=== PATIENT | male | born 1960 | race Caucasian/White ===

== ENCOUNTER 2020-06-22 08:54 | Day surgery (SDC) | payer OTHER, SELFPAY ==
[2020-06-17 13:42] VITALS: BMI 28.7
--- NOTE | 2020-06-20 08:56 | HO.ANESPROP2 ---
Documented by User: Leidy Xiomara 06/20/20 08:58 HPI - Anesthesia Eval Consult details Narrative: 59yo M for Colonoscopy: screening [facility] Past Medical History Medical History History of TMJ disorder HTN (hypertension) Hx of backache Hx of thrombocytopenia WILMA on CPAP Renal mass, right Surgical History Surgical History Hx of colonoscopy Social History Social History Smoking Status: Former smoker Advance Directives: No Advance Directives Information Provided: No Advance Directives on File: No Meds Allergies Allergy/AdvReac Type Severity Reaction Status Date / Time No Known Allergies Allergy Unverified 05/19/20 15:40 Home Medications Medication Instructions Recorded Confirmed Type cyclobenzaprine 1 tab PO TID 06/17/20 06/17/20 History hydralazine 1 tab PO BID 06/17/20 06/17/20 History lisinopril 20 tab PO 06/17/20 History lorazepam 1 mg PO TID PRN 06/17/20 06/17/20 History meloxicam 1 tab PO DAILY 06/17/20 06/17/20 History metoprolol tartrate 1 tab PO BID 06/17/20 06/17/20 History omega 5-gkn-zcq-fish oil [Fish Oil] 1 cap PO DAILY 06/17/20 06/17/20 History Exam Exam Date and Time: June 20, 2020 0856 Height,Weight and Vital Signs: Height 5 ft 11 in Weight 93.44 kg Pertinent Lab Results Pertinent Lab Results: Laboratory Tests 04/12/20 04/12/20 11:20 11:20 WBC 5.5 Hgb 14.3 Hct 42.8 Plt Count 114 L Sodium 140 Potassium 4.5 Chloride 105 BUN 15 Creatinine 0.86 Assessment and Plan Assessment Anesthesia Assessment: Chart Reviewed Documented by User: Sky Au MD 06/22/20 09:40 [facility] Past Medical History Medical History History of TMJ disorder HTN (hypertension) Hx of backache Hx of thrombocytopenia WILMA on CPAP Renal mass, right Surgical History Surgical History Hx of colonoscopy Social History Social History Smoking Status: Former smoker Advance Directives: No Advance Directives Information Provided: No Advance Directives on File: No Meds Allergies Allergy/AdvReac Type Severity Reaction Status Date / Time No Known Allergies Allergy Unverified 05/19/20 15:40 Home Medications Medication Instructions Recorded Confirmed Type cyclobenzaprine 1 tab PO TID 06/17/20 06/17/20 History hydralazine 1 tab PO BID 06/17/20 06/17/20 History lisinopril 20 tab PO 06/17/20 History lorazepam 1 mg PO TID PRN 06/17/20 06/17/20 History meloxicam 1 tab PO DAILY 06/17/20 06/17/20 History metoprolol tartrate 1 tab PO BID 06/17/20 06/17/20 History omega 9-wzc-owa-fish oil [Fish Oil] 1 cap PO DAILY 06/17/20 06/17/20 History Exam Airway Mallampati Class: II TM Dist: >3cm Neck ROM: Full Loose/Missing/Broken Teeth: No Heart: rrr Lungs: nl Other: ao Assessment and Plan Assessment Anesthesia Assessment: Anesthesia Plan Discussed and Chart Reviewed Final Anesthetic Review NPO: Yes ASA Class: II Final Preanesthetic Review: No Changes in Pt Med Stat, Meds/Allgs Chart Reviewed, Consent Obtained/Reviewed and Anes Risks/Benef Reviewed Patient Risk: Intermediate Procedure Risk: Intermediate Anesthetic Plan Anesthetic Plan: MAC: Disposition: Standard PACU
[2020-06-22 09:11] VITALS: BP 171/99; PULSE 58; RESP 16; TEMP 37.1; O2SAT 99
[2020-06-22] MEDS: Lactated Ringers 1,000 ML 100 ML IVCONT (09:26)
--- NOTE | 2020-06-22 09:32 | MHC.SHP ---
Pre-Procedural Eval Section B Chief Complaint: SCREENING Relevant Social History: None Medical History: Significant History (HTN, renal mass-stable) History of Previous Operations: Relevant previous surgery/procedure and date(s) (back surgery) Allergies: Allergies Allergy/AdvReac Type Severity Reaction Status Date / Time No Known Allergies Allergy Unverified 05/19/20 15:40 Review of Systems Sugical H&P ROS: Negative: Constitution, Cardiovascular, Respiratory, Neurological, Psychiatric, Hem-Onc, Allergic/Immunologic, Gastrointestinal, Genitourinary, Musculoskeletal, Integumentary, Endocrine and Eyes/Ears/Nose/Throat Exam Surgical H&P Exam: Normal: HEENT, Normal: Heart, Normal: Lungs, Normal: Extremities, Normal: Abdomen, Normal: Skin and Normal: Neurological Plan Diagnosis/Plan: Unchanged Patient has been examined and remains a candidate for the planned procedure
--- NOTE | 2020-06-22 10:07 | P.OP_ITS ---
Operative Note Operative Note Narrative: Operative Information Procedure Description: Colonoscopy COLONOSCOPY Instrument: Olympus variable stiffness pediatric scope 190L Colonoscopy Monitoring: Vital signs and clinical assessment, continuous EKG monitoring, Pulse oximetry, Carbon Dioxide monitoring and blood pressure monitoring were done throughout the procedure. Colon withdrawal time was 10 minutes. Procedure: The patient was placed in the left lateral decubitis position and pre-procedure medications were administered. After a digital rectal examination of the ano-rectum, the video colonoscope was inserted into the rectum and advanced through the colon to the cecum/TI. The colonoscope was slowly withdrawn in a retrograde panoramic fashion and the colon mucosa was carefully examined including a retroflexed view of the rectum. Findings and interventions are described below. Procedure Difficulty: easy Findings: Terminal Ileum-normal Cecum: 6-8 mm sessile polyp removed with forceps Ascending Colon: normal Transverse Colon -normal Descending Colon:normal Sigmoid Colon: mild diverticulosis with small tics noted Rectum: Retroflexion with small internal hemorrhoids, grade I Anorectum - normal Colon preparation: [place] Bowel Preparation Scale Right colon; 2 Transverse colon: 2 Left colon; 2 (0 = Unprepared colon segment with mucosa not seen due to solid stool that cannot be cleared. 1 = Portion of mucosa of the colon segment seen, but other areas of the colon segment not well seen due to staining, residual stool and/or opaque liquid. 2 = Minor amount of residual staining, small fragments of stool and/or opaque liquid, but mucosa of colon segment seen well. 3 = Entire mucosa of colon segment seen well with no residual staining, small fragments of stool or opaque liquid) Impression and Post Procedure Diagnosis: diverticulosis internal hemorrhoids polyp Plan: High fiber diet leaflet Avoid straining at stool, epsom salts and sitz bath prn, anusol supps or cream prn Repeat Colonoscopy in 5 years due to staining of colon mucosa or earlier if clincially indicated Above findings were reviewed with the patient and relevant handouts were provided if indicated.
--- NOTE | 2020-06-22 10:07 | PM.OP ---
Brief Operative Note Date of procedure: 06/22/20 Pre-op diagnosis: screening Post-op diagnosis: same Procedure: colonoscopy--see note Surgeon: Ravinder Wynn MD Anesthesia: MAC Estimated blood loss (mL): 0 Condition: stable Disposition: PACU
[2020-06-22 10:14] VITALS: BP 125/79; PULSE 54; RESP 16; TEMP 36.1; O2SAT 95
[2020-06-22 10:27] VITALS: BP 155/91; PULSE 56; RESP 18; O2SAT 97
== END 2020-06-22 10:52 | disposition home or self-care (01) ==
PROVIDERS: PCP Internal Medicine Medical Oncology; Visit Provider Internal Medicine Gastroenterology
PROC: 0DJD8ZZ Inspection of Lower Intestinal Tract, Via Natural or Artificial Opening Endoscopic (ICD-10-PCS; CPT 45378; principal; 2020-06-22 10:10)
DX: Z12.11 Encounter for screening for malignant neoplasm of colon (principal); D12.0 Benign neoplasm of cecum; K57.30 Diverticulosis of large intestine without perforation or abscess without bleeding; K64.0 First degree hemorrhoids; I10 Essential (primary) hypertension; N28.89 Other specified disorders of kidney and ureter; J30.2 Other seasonal allergic rhinitis; Z79.82 Long term (current) use of aspirin; Z79.899 Other long term (current) drug therapy
CPT/HCPCS: 45380; 88305; J3010

== ENCOUNTER 2020-07-20 08:49 | Outpatient (REF) | payer OTHER, SELFPAY ==
--- NOTE | 2020-07-20 | US_ITS ---
EXAMINATION: US RETROPERITONEAL LIMITED (RENAL ONLY) CLINICAL INFORMATION: Right renal mass. COMPARISON: Renal ultrasound dated 04/14/2019 and 12/15/2018. CT abdomen dated 04/12/2020, CT scan of the abdomen dated 12/31/2017 and MRI of the abdomen dated 04/23/2017. TECHNIQUE: Real-time imaging of the kidneys. FINDINGS: RIGHT KIDNEY: 11.6 x 4.53 x 5.95 cm (SAG x AP x TRV). An exophytic heterogeneous echogenic lesion is again seen off of the lower pole the right kidney measuring 1.4 x 1.2 x 1.3 cm. LEFT KIDNEY: 11.9 x 6.37 x 6.72 cm (SAG x AP x TRV). Mild pelvicaliectasis is seen. US/US renal BI IMPRESSION: 1. Exophytic echogenic lesion off of the lower pole the right kidney shows a similar size and appearance to previous studies. This remains nonspecific, but the overall interval stability dating back to 2018 favors a benign/low-grade lesion. This could represent a hemorrhagic cyst or lipid poor angiomyolipoma. Continued short-term monitoring with renal ultrasound in 6-12 months is recommended. 2. Mild left renal pelvicaliectasis is similar to previous studies. No obstructing abnormality is seen.
== END 2020-07-20 08:50 | disposition home or self-care (01) ==
LOC: HO.HMGCX 08:49
PROVIDERS: PCP Internal Medicine Medical Oncology; Visit Provider Internal Medicine Medical Oncology
DX: N28.89 Other specified disorders of kidney and ureter (principal)
CPT/HCPCS: 76775

== ENCOUNTER 2020-08-03 14:23 | Outpatient (REF) | payer OTHER, SELFPAY ==
--- NOTE | 2020-08-03 14:23 | MR_ITS ---
EXAMINATION: MR CERVICAL SPINE WITHOUT CONTRAST CLINICAL INFORMATION: Cervical radiculopathy pain. COMPARISON: Cervical spine radiographs from 07/18/2011. TECHNIQUE: MRI of the cervical spine was obtained using routine sequences without contrast. FINDINGS: Normal anatomic alignment. Moderate multilevel degenerative spondyloarthropathy of the cervical spine from C4-C7. Associated mixed Modic discogenic endplate changes including mild Modic type I discogenic edema at C4-C5 and C5-C6. No additional suspicious marrow edema. The vertebral body heights are largely maintained. No spinal cord signal abnormalities demonstrated in 2 planes. Limited evaluation of the soft tissues of the neck without demonstrated abnormalities. The flow voids of the major cervical vessels are maintained. Normal appearance of the cervicomedullary junction and visualized posterior fossa. SPINAL LEVELS: C2-C3: Mild disc-osteophyte complex. There is mild right and no left uncovertebral joint arthropathy. There is moderate bilateral facet joint arthropathy. There is mild right and no left neural foraminal stenosis. There is no spinal canal stenosis. C3-C4: Moderate disc-osteophyte complex. There is severe left and moderate uncovertebral joint arthropathy. There is moderate bilateral facet joint arthropathy. There is severe left and moderate right neural foraminal stenosis. There is no spinal canal stenosis. C4-C5: Mild to moderate disc-osteophyte complex. There is severe right and moderate left uncovertebral joint arthropathy. There is mild right and moderate left facet joint arthropathy. There is severe right worse than left neural foraminal stenosis. There is flattening the ventral cord with no overt spinal canal stenosis. C5-C6: Moderate disc-osteophyte complex. There is severe right and moderate left uncovertebral joint arthropathy. There is moderate bilateral facet joint arthropathy. There is severe right and moderate left neural foraminal stenosis. There is mild flattening the ventral cord with no overt spinal canal stenosis. C6-C7: Moderate disc-osteophyte complex. There is severe left and moderate uncovertebral joint arthropathy. There is mild to facet joint arthropathy. There is severe left and mild right neural foraminal stenosis. There is flattening the ventral cord with no overt spinal canal stenosis. C7-T1: Minimal disc-osteophyte complex. There is no uncovertebral joint arthropathy. There is severe right and mild left facet joint arthropathy. There is moderate right and no left neural foraminal stenosis. There is no spinal canal stenosis. MR/MR cervical spine wo con IMPRESSION: Moderate multilevel degenerative spondyloarthropathy of the cervical spine as described in detail above. Mild narrowing of the spinal canal from C3-C7 without overt spinal canal stenosis. Multilevel moderate to severe neural foraminal stenoses from C3-T1.
== END 2020-08-03 14:24 | disposition home or self-care (01) ==
LOC: HO.MRI 14:23
PROVIDERS: Visit Provider Psychiatry & Neurology Neurology
DX: M54.12 Radiculopathy, cervical region (principal)
CPT/HCPCS: 72141

== ENCOUNTER → 2020-08-10 09:02 | Outpatient (BNVA) | payer OTHER, SELFPAY | PROVIDERS: PCP Internal Medicine Medical Oncology; Visit Provider Urology | DX: Z76.89 Persons encountering health services in other specified circumstances (principal) ==

== ENCOUNTER 2020-09-14 13:09 | Emergency (ER) | payer OTHER, SELFPAY ==
[2020-09-14 13:13] VITALS: BP 185/114; RESP 16; TEMP 36.8; BMI 26.6
[2020-09-14] MEDS: Lidocaine HCl 1 % MPF 5 ML VIAL SUBCUT (13:32)
--- NOTE | 2020-09-14 13:51 | XR_ITS ---
EXAMINATION: XR HAND, LEFT CLINICAL INFORMATION: Laceration COMPARISON: November 16, 2015 TECHNIQUE: PA, lateral, and oblique views of the left hand. FINDINGS: There is no evidence of acute fracture or dislocation of the left hand. There are some small radiopaque density seen about the radial volar aspect of the soft tissues adjacent to the second middle phalanx. Small amount of gas is seen in the adjacent soft tissues as well as soft tissue swelling. There appear to be 2 soft tissue defects along the radial aspect of the second finger. There is degenerative joint disease seen with marginal spurring of the distal interphalangeal joints as well as the fourth proximal interphalangeal joint. No erosive changes are evident. There is degenerative change involving the triscaphe joint as well as the first carpal metacarpal joint with joint space narrowing, sclerosis, and spurring. This is similar to prior study. There are subchondral cyst formation about the distal ulna. XR/XR hand LT min 3V IMPRESSION: A few radiopaque foreign body seen about the soft tissues adjacent to the second middle phalanx. Degenerative change as described. No acute fracture or dislocation evident.
--- NOTE | 2020-09-14 14:22 | ED_ITS ---
HPI - Wound/Laceration General Chief Complaint: Wound/Laceration <CHARLENE Walker - Last Filed: 09/14/20 14:57> Stated Complaint: finger lac <CHARLENE Walker Last Filed: 09/14/20 14:57> Time Seen by Provider: 09/14/20 13:27 <CHARLENE Walker Last Filed: 09/14/20 14:57> Source: patient <CHARLENE Walker Last Filed: 09/14/20 14:57> Mode of arrival: ambulatory <CHARLENE Walker - Last Filed: 09/14/20 14:57> Limitations: no limitations <CHARLENE Walker Last Filed: 09/14/20 14:57> History of Present Illness HPI narrative: 59yoM of HTN presenting to the ED after sustaining a laceration to his left hand index finger palmar aspect while 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 Reports he is not up-to-date on tetanus. Denies any fevers, purulent drainage, concerns for foreign bodies, paresthesias, any additional injuries or any other symptoms complaints or concerns at this time. <CHARLENE Walker Last Filed: 09/14/20 14:57> Related Data Home Medications: Home Medications Medication Instructions Recorded Confirmed cyclobenzaprine 1 tab PO TID 06/17/20 06/17/20 hydralazine 1 tab PO BID 06/17/20 06/17/20 lisinopril 20 tab PO 06/17/20 lorazepam 1 mg PO TID PRN 06/17/20 06/17/20 meloxicam 1 tab PO DAILY 06/17/20 06/17/20 metoprolol tartrate 1 tab PO BID 06/17/20 06/17/20 omega 5-miq-jof-fish oil [Fish Oil] 1 cap PO DAILY 06/17/20 06/22/20 Previous Rx's Medication Instructions Recorded cephalexin [Keflex] 500 mg PO Q6H 10 Days #40 cap 09/14/20 doxycycline monohydrate 100 mg PO BID 10 Days #20 cap 09/14/20 ibuprofen 800 mg PO Q8H PRN #14 tab 09/14/20 <CHARLENE Walker Last Filed: 09/14/20 14:57> Allergies/Adverse Reactions: Allergies Allergy/AdvReac Type Severity Reaction Status Date / Time No Known Allergies Allergy Unverified 05/19/20 15:40 <CHARLENE Walker - Last Filed: 09/14/20 14:57> Review of Systems Review of Systems: Constitutional : No Fever, No Chills, Cardiovascular : No Chest Pain, No SOB Respiratory : No Dyspnea Gastrointestinal : No abdominal pain Musculoskeletal : No Joint Swelling Skin : + skin laceration, No Foreign bodies, No rash, No surrounding erythema Neuro : No Weakness, No Numbness/tingling Psych : No SI/HI/thoughts of self injury <CHARLENE Walker - Last Filed: 09/14/20 14:57> Yes all other systems are reviewed and are negative <CHARLENE Walker - Last Filed: 09/14/20 14:57> [facility] Past Medical History Attestation statement: The following information was validated with the patient. <CHARLENE Walker - Last Filed: 09/14/20 14:57> Medical History: Medical History History of TMJ disorder HTN (hypertension) Hx of backache Hx of thrombocytopenia WILMA on CPAP Renal mass, right <CHARLENE Walker - Last Filed: 09/14/20 14:57> Surgical History: Surgical History Hx of colonoscopy <CHARLENE Walker - Last Filed: 09/14/20 14:57> Social History Social History: Social History Smoking Status: Former smoker Advance Directives: No Advance Directives Information Provided: No <CHARLENE Walker - Last Filed: 09/14/20 14:57> Physical Exam Vital Signs: Vital Signs: Last Vital Signs Temp 98.5 F 09/14/20 14:55 Pulse 115 H 09/14/20 14:55 Resp 17 09/14/20 14:55 BP 173/103 H 09/14/20 14:55 Pulse Ox 96 09/14/20 14:55 Body Mass Index 26.6 vital signs have been reviewed as normal and appeared to be correct. Blood pressure normal. Heart rate normal. Respiration rate normal. Temperature normal. Oxygen saturation normal. <CHARLENE Walker - Last Filed: 09/14/20 14:57> Vital Signs: Last Vital Signs Temp 98.5 F 09/14/20 14:55 Pulse 115 H 09/14/20 14:55 Resp 17 09/14/20 14:55 BP 173/103 H 09/14/20 14:55 Pulse Ox 96 09/14/20 14:55 Body Mass Index 26.6 <Rory Parkinson MD - Last Filed: 09/22/20 23:34> Appearance: Alert. Oriented X3. No acute distress. Head: Normal external exam. Normocephalic. Atraumatic. Eyes: PERRLA. EOMI. Conjunctiva and sclera normal. Eyelids normal. ENT: Pharynx normal. Uvula midline. Moist mucous membranes. Neck: Normal inspection. Neck supple. FROM. No adenopathy. No meningeal signs. CVS: Normal heart rate and rhythm. Heart sound normal. No murmurs noted. Pulses normal throughout. Respiratory: No respiratory distress. Painless inspiration. Breath sounds normal. No wheezes/rales/rhonchi noted. Chest nontender. No accessory muscle usage noted or decreased air movement noted. Back: Full range of motion noted. Skin: To left hand palmar aspect index finger at the distal aspect patient has 2 cm intermediate laceration. No surrounding erythema/streaking/foreign bodies noted. Otherwise the rest of the Skin is warm and dry. Normal skin color. Normal skin turgor. No rashes/lesions noted. Extremities: Extremities exhibit normal range of motion. Extremities nontender. Neuro: Oriented X 3. No motor deficit. No sensory deficit. Reflexes normal. 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 - patient now status post laceration repair with [address] no complications. Patient tolerated procedure well. Clean dressing placed. Tetanus updated. X-ray ordered if negative for any acute fractures will DC home with symptomatic treatment and antibiotics and instructions return in 10 days for suture removal and to follow up with primary care provider and to return sooner if any new or worsening symptoms. Patient understands agrees with this plan. <CHARLENE Walker - Last Filed: 09/14/20 14:57> I have discussed the case and management with the JUSTIN. I understand there are metallic FB in the finger, JUSTIN has let the patient know <Rory Parkinson MD - Last Filed: 09/22/20 23:34> Reevaluation(s) Reevaluation #1: - x-ray obtained and negative for fractures although revealed foreign bodies. Therefore I reviewed this with the patient and he reported to me most likely this was the Brass that he was cutting and he reports that he is not too worried about this at this time although I explained to him that this is a foreign body and could cause infection in the future or complications although he understands the risks and he will return if any new or worsening symptoms. Will DC home with antibiotics and symptomatic treatment along with instructions return in 10 days for suture removal. Patient understands agrees the plan. <CHARLENE Walker - Last Filed: 09/14/20 14:57> Time: 14:55 <CHARLENE Walker - Last Filed: 09/14/20 14:57> MDM - Wound/Laceration Medical Records Attestation: I reviewed the patient's medical records. <CHARLENE Walker - Last Filed: 09/14/20 14:57> Lab Data Attestation: I reviewed the patient's lab results. <CHARLENE Walker - Last Filed: 09/14/20 14:57> Imaging Data left hand : Attestation: I personally reviewed and interpreted this imaging study as follows: <CHARLENE Walker - Last Filed: 09/14/20 14:57> Radiologist's impression: IMPRESSION: A few radiopaque foreign body seen about the soft tissues adjacent to the second middle phalanx. Degenerative change as described. No acute fracture or dislocation evident. <CHARLENE Walker Last Filed: 09/14/20 14:57> Discharge Plan Discharge Clinical Impression: Laceration, Foreign body in hand <CHARLENE Walker Last Filed: 09/14/20 14:57> Patient Disposition: Home, Self-Care <CHARLENE Walker Last Filed: 09/14/20 14:57> Instructions: Laceration (ED), Soft Tissue Foreign Body (ED) <CHARLENE Walker - Last Filed: 09/14/20 14:57> Prescriptions: New ibuprofen 800 mg tablet 800 mg PO Q8H PRN (Reason: pain) Qty: 14 RF: 0 doxycycline monohydrate 100 mg capsule 100 mg PO BID 10 Days Qty: 20 RF: 0 cephalexin [Keflex] 500 mg capsule 500 mg PO Q6H 10 Days Qty: 40 RF: 0 No Action hydralazine 10 mg tablet 1 tab PO BID RF: 0 metoprolol tartrate 100 mg tablet 1 tab PO BID RF: 0 lisinopril 20 mg tablet 20 tab PO RF: 0 meloxicam 7.5 mg tablet 1 tab PO DAILY RF: 0 lorazepam 1 mg Tablet 1 mg PO TID PRN (Reason: Anxiety) RF: 0 omega 7-lkb-loo-fish oil [Fish Oil] 1,000 mg (120 mg-180 mg) Capsule 1 cap PO DAILY RF: 0 cyclobenzaprine 10 mg tablet 1 tab PO TID RF: 0 <CHARLENE Walker - Last Filed: 09/14/20 14:57> Referrals: Mariela Peoples PA [Emergency Midlevel Provider] - 10 days (for suture removal ) <CHARLENE Walker - Last Filed: 09/14/20 14:57> Stand Alone Forms: Work/School Release <CHARLENE Walker - Last Filed: 09/14/20 14:57> Interventions: ED Discharge Assessment Last Done: 09/14/20 15:10 <CHARLENE Walker - Last Filed: 09/14/20 14:57> Discharge Date/Time: 09/14/20 15:11 <CHARLENE Walker - Last Filed: 09/14/20 14:57> Print Language: Setswana <CHARLENE Walker - Last Filed: 09/14/20 14:57>
[2020-09-14 14:55] VITALS: BP 173/103; PULSE 115; RESP 17; TEMP 36.9; O2SAT 96
== END 2020-09-14 15:11 | disposition home or self-care (01) ==
PROVIDERS: Emergency Provider Emergency Medicine; PCP Internal Medicine Medical Oncology
DX: S61.221A Laceration with foreign body of left index finger without damage to nail, initial encounter (principal); W31.2XXA Contact with powered woodworking and forming machines, initial encounter; I10 Essential (primary) hypertension; Y93.89 Activity, other specified; Y92.019 Unspecified place in single-family (private) house as the place of occurrence of the external cause; Y99.9 Unspecified external cause status
CPT/HCPCS: 12041; 73130; 90471; 90715; 99284

== ENCOUNTER 2020-09-22 13:25 | Emergency (ER) | payer OTHER, SELFPAY ==
--- NOTE | 2020-09-22 13:28 | ED.WOUNDLAC ---
HPI - Wound/Laceration General Chief Complaint: Wound/Laceration Stated Complaint: suture removal Time Seen by Provider: 09/22/20 13:27 Source: patient Mode of arrival: ambulatory Limitations: no limitations History of Present Illness HPI narrative: 59 y/o male presenting for suture removal. He was seen here on 09/14 for injuryt to his finger from a saw. Wound was repaired and XR showed samll foreign body consistent with metal. He was discharged with Keflex/Doxy and told to return to the ER in 10 days for suture removal. Minor numbness at the tip of his index finger with otherwise no complaints. Wound is healing well per his report. Onset (ago): day(s) (8) Extremity Location: left: hand (index finger) Place: home Patient tetanus UTD: Yes Context: accidental Associated symptoms: none Treatments prior to arrival: bandage Related Data Home Medications Medication Instructions Recorded Confirmed cyclobenzaprine 1 tab PO TID 06/17/20 06/17/20 hydralazine 1 tab PO BID 06/17/20 06/17/20 lisinopril 20 tab PO 06/17/20 lorazepam 1 mg PO TID PRN 06/17/20 06/17/20 meloxicam 1 tab PO DAILY 06/17/20 06/17/20 metoprolol tartrate 1 tab PO BID 06/17/20 06/17/20 omega 2-hzw-mto-fish oil [Fish Oil] 1 cap PO DAILY 06/17/20 06/22/20 Previous Rx's Medication Instructions Recorded cephalexin [Keflex] 500 mg PO Q6H 10 Days #40 cap 09/14/20 doxycycline monohydrate 100 mg PO BID 10 Days #20 cap 09/14/20 ibuprofen 800 mg PO Q8H PRN #14 tab 09/14/20 Allergies Allergy/AdvReac Type Severity Reaction Status Date / Time No Known Allergies Allergy Unverified 05/19/20 15:40 Review of Systems Review of Systems: Constitutional: No Fever, No Chills Cardiovascular: No Chest Pain, No SOB Respiratory: No Cough, No Sputum Gastrointestinal: No Nausea, No Vomiting Musculoskeletal: + joint pain, No Myalgias Skin: No Skin Lesions, No rash Neuro: No Weakness, No Numbness Heme/Lymph: No Bruising PMFSH Past Medical History Attestation statement: The following information was validated with the patient. Medical History History of TMJ disorder HTN (hypertension) Hx of backache Hx of thrombocytopenia WILMA on CPAP Renal mass, right Surgical History Hx of colonoscopy Social History Social History Smoking Status: Former smoker Advance Directives: No Advance Directives Information Provided: No Physical Exam Vital Signs: Vital Signs: Last Vital Signs Temp 98 F 09/22/20 13:36 Pulse 65 09/22/20 13:36 Resp 18 09/22/20 13:36 BP 177/103 H 09/22/20 13:36 Pulse Ox 99 09/22/20 13:36 Body Mass Index 26.4 Appearance: Alert. Oriented X3. No acute distress. HEENT: normal inspection CVS: Normal heart rate and rhythm. Pulses normal. Respiratory: No respiratory distress. Skin: Skin warm and dry. Normal skin color. Normal skin turgor. No rashes. Extremities: left index finger with well healing laceration to volar aspect at DIP. Neuro: Oriented X 3. No motor deficit, jailyn to fully extend and flex the finger at DIP joint. Numbness to distal fingertip laterally. Fingernail intact. No erythema or discharge. Course Course Course Narrative: 59 y/o male presenting for suture removal. Wound is healing appropriately. Sutures were removed. Wound was cleaned and steri-strips were applied. A sterile dressing placed with antibiotic ointment. Patient counseled. Stable for discharge. Critical Care Time Critical Care Time Critical Care Time: No Discharge Plan Discharge Clinical Impression: Visit for suture removal Patient Disposition: Home, Self-Care Instructions: Stitches Removal (ED) Additional Instructions: Use Bacitracin or Neosporin to the area to help improve healing and prevent infection. Allow the steri-strips to fall off on their own, do not peel them off. Continue to take the antibiotics as prescribed. Follow up with your doctor as needed. Your blood pressure was elevated today - follow up with them for further management. Prescriptions: No Action hydralazine 10 mg tablet 1 tab PO BID RF: 0 metoprolol tartrate 100 mg tablet 1 tab PO BID RF: 0 lisinopril 20 mg tablet 20 tab PO RF: 0 meloxicam 7.5 mg tablet 1 tab PO DAILY RF: 0 lorazepam 1 mg Tablet 1 mg PO TID PRN (Reason: Anxiety) RF: 0 omega 8-zia-cyn-fish oil [Fish Oil] 1,000 mg (120 mg-180 mg) Capsule 1 cap PO DAILY RF: 0 cyclobenzaprine 10 mg tablet 1 tab PO TID RF: 0 ibuprofen 800 mg tablet 800 mg PO Q8H PRN (Reason: pain) Qty: 14 RF: 0 doxycycline monohydrate 100 mg capsule 100 mg PO BID 10 Days Qty: 20 RF: 0 cephalexin [Keflex] 500 mg capsule 500 mg PO Q6H 10 Days Qty: 40 RF: 0
[2020-09-22 13:36] VITALS: BP 177/103; PULSE 65; RESP 18; TEMP 36.6; O2SAT 99; BMI 26.4
== END 2020-09-22 13:54 | disposition home or self-care (01) ==
PROVIDERS: Emergency Provider Emergency Medicine Emergency Medical Services; PCP Internal Medicine Medical Oncology
DX: Z48.02 Encounter for removal of sutures (principal); I10 Essential (primary) hypertension; Z79.899 Other long term (current) drug therapy; Z87.891 Personal history of nicotine dependence
CPT/HCPCS: 99283

== ENCOUNTER 2020-10-14 10:51 | Outpatient (REF) | payer OTHER, SELFPAY | END 2020-10-14 10:52 | disposition home or self-care (01) | LOC: HO.LAB 10:51 | PROVIDERS: Visit Provider Internal Medicine | DX: Z20.822 Contact with and (suspected) exposure to COVID-19 (principal) | CPT/HCPCS: 36415; C9803; U0003; U0005 ==

== ENCOUNTER 2021-03-29 09:30 | Outpatient (REF) | payer OTHER, SELFPAY ==
[2021-03-29 10:20] LABS: MANUAL DIFF FLAG NO
[2021-03-29 10:26] LABS: Basophils Percent Auto 0.8 % (0-2); Eosinophils Absolute Auto 0.2 X10*3/uL (0.0-0.4); Eosinophils Percent Auto 4.8 % (0-4); Hematocrit 43.1 % (42-52); Hemoglobin 14.6 g/dl (14.0-18.0); Imm Gran Abs Auto 0.01 X10*3/uL (0.00-0.03); Imm Gran Pct Auto 0.2 % (0.0-0.4); Lymphocytes Absolute Auto 1.1 X10*3/uL (1.2-4.9); Lymphocytes Percent Auto 22.8 % (20-40); Mean Corpuscular HGB Conc 33.9 g/dl (31.0-36.0); Mean Corpuscular Hemoglobin 33.1 pg (27.0-33.0); Mean Corpuscular Volume 97.7 fL (80-98); Mean Platelet Volume 13.4 fL (9.4-12.4); Monocytes Absolute Auto 0.5 X10*3/uL (0.1-1.2); Monocytes Percent Auto 10.8 % (2-11); Neutrophils Percent Auto 60.6 % (45-73); Platelet Count 104 X10*3/uL (160-400); Red Blood Count 4.41 X10*6/uL (4.60-5.80)
[2021-03-29 10:49] LABS: Alanine Aminotransferase 11 U/L (0-40); Albumin Level 4.3 g/dL (3.5-5.0); Alkaline Phosphatase 75 U/L (39-117); Anion Gap 11 (12-20); Aspartate Amino Transferase 16 U/L (5-37); Bilirubin Total 1.4 mg/dL (0.0-1.0); Blood Urea Nitrogen 12 mg/dL (9-16); Calcium 9.6 mg/dL (8.4-10.2); Carbon Dioxide 29 mmol/L (22-29); Chloride 104 mmol/L (96-108); Cholesterol 161 mg/dL; Estimated Glomerular Filt Rate > 60; Glucose Random 96 mg/dL (60-115); HDL Cholesterol 40 mg/dL; LDL Cholesterol Calculated 73 mg/dl; Potassium 4.4 mmol/L (3.3-5.1); Sodium 140 mmol/L (135-145); Total Protein 6.5 g/dL (6.5-8.0); Triglycerides 241 mg/dL
[2021-03-29 11:11] LABS: Prostate Specific Antigen 0.57 ng/mL (<0.05-4.0)
== END 2021-03-29 09:31 | disposition home or self-care (01) ==
LOC: HO.LAB 09:30
PROVIDERS: PCP Internal Medicine Medical Oncology; Visit Provider Internal Medicine Medical Oncology
DX: I10 Essential (primary) hypertension (principal); D69.6 Thrombocytopenia, unspecified; N28.89 Other specified disorders of kidney and ureter
CPT/HCPCS: 36415; 80053; 80061; 84153; 85025

== ENCOUNTER 2021-08-22 11:18 | Outpatient (REF) | payer OTHER, SELFPAY ==
--- NOTE | ~2021-08-22 | US_ITS ---
EXAMINATION: US RETROPERITONEAL LIMITED (RENAL ONLY) CLINICAL INFORMATION: Calculus of kidney. COMPARISON: Renal ultrasound 07/20/2020 and 04/14/2019. CT abdomen 04/12/2020. MRI abdomen 04/23/2017. TECHNIQUE: Real-time imaging of the kidneys. The patient returned on 08/24/2021. Additional imaging of the right kidney. FINDINGS: RIGHT KIDNEY: 10.1 x 4.2 x 6.0 cm (SAG x AP x TRV). The kidney is normal in size, contour, and echogenicity. Renal cortical thickness is normal. No calculi or focal parenchymal lesions. No hydronephrosis. There is a 1.1 x 1.1 x 0.9 cm lesion exophytic to the lateral lower pole of the right kidney. This has slightly thick echogenic wall and appears cystic centrally. Difficult to visualize. This measured 1.4 x 1.2 x 1.3 cm on most recent ultrasound exam. LEFT KIDNEY: 11.3 x 5.1 x 6.3 cm (SAG x AP x TRV). The kidney is normal in size, contour, and echogenicity. Renal cortical thickness is normal. There is a 1.3 x 1.5 x 1 cm cyst in the upper pole. There is question of left peripelvic cysts versus hydronephrosis. No renal calculi. US/US renal BI IMPRESSION: No stone seen. 1.1 x 1.1 x 0.9 cm heterogeneous lesion exophytic to the lower pole of the right kidney. This is difficult to visualize and measurement differences may not be accurate. Question left renal peripelvic cysts versus hydronephrosis.
== END 2021-08-22 11:19 | disposition home or self-care (01) ==
LOC: HO.US 11:18
PROVIDERS: PCP Internal Medicine Medical Oncology; Visit Provider Internal Medicine Medical Oncology
DX: N20.0 Calculus of kidney (principal); N28.1 Cyst of kidney, acquired; N28.89 Other specified disorders of kidney and ureter
CPT/HCPCS: 76775

== ENCOUNTER → 2021-10-11 08:16 | Outpatient (BNVA) | payer OTHER, SELFPAY | PROVIDERS: PCP Internal Medicine Medical Oncology; Visit Provider Physician Assistant ==

== ENCOUNTER 2021-11-27 09:36 | Outpatient (REF) | payer OTHER, SELFPAY ==
--- NOTE | ~2021-11-27 | XR_ITS ---
EXAMINATION: XR CHEST CLINICAL INFORMATION: Wheezing and smoker. COMPARISON: None TECHNIQUE: 2 views of the chest were obtained. FINDINGS: The lungs are well-expanded and clear of acute process. The heart size and pulmonary vascularity is normal. There is moderate spondylosis dorsal spine. No lytic process seen. XR/XR chest 2V IMPRESSION: Unremarkable chest examination.
== END 2021-11-27 09:37 | disposition home or self-care (01) ==
LOC: HO.XRAY 09:36
PROVIDERS: PCP Internal Medicine Medical Oncology; Visit Provider Internal Medicine Medical Oncology
DX: R06.2 Wheezing (principal); F17.200 Nicotine dependence, unspecified, uncomplicated
CPT/HCPCS: 71046